=== PATIENT | female | born 1985 | race African-American/Black ===

== ENCOUNTER 2018-04-30 09:26 | Inpatient (IN) ==
[2018-04-30] MEDS ORDERED: FAMOTIDINE 20 MG/2 ML VIAL IV ONE (12:46)
[2018-04-30] MEDS ORDERED: ceFAZolin 2,000 MG in PREMIX 1 EACH IV ONE (12:46)
[2018-04-30] MEDS ORDERED: CITRIC ACID/SODIUM CITRATE 30 ML UDCUP PO ONE (12:46)
[2018-04-30] MEDS ORDERED: OXYTOCIN/LR 30 UNIT/1,000 ML BAG IV ONE (12:48)
[2018-04-30] MEDS ORDERED: OXYTOCIN 10 UNIT/ML VIAL IM ONE (12:48)
[2018-04-30] MEDS ORDERED: LACTATED RINGERS 1,000 ML IV SCH ×2 (13:00→15:00)
[2018-04-30 13:26] LABS: Basophils % 0.2 % (0.0-0.8); Eosinophils # 0.1 10*3/uL (0.0-0.87); Eosinophils % 0.7 % (0.00-10.9); Hematocrit 33.7 VOL% (35.7-47.0); Hemoglobin 11.1 GM/DL (12.0-16.0); Immature Granulocytes % 0.6 %; Immature Granulocytes Absolute 0.06 #; Lymphocytes # 2.5 10*3/uL (1.4-4.0); Lymphocytes % 22.9 % (21.3-54.2); Mean Corpuscular HGB Conc 32.9 GM/DL (32-36); Mean Corpuscular Hemoglobin 30 PG (27-34); Mean Corpuscular Volume 89.6 FL (87-102); Mean Platelet Volume 10.8 FL (9.6-12.0); Monocytes # 0.7 10*3/uL (0.11-0.8); Neutrophils # 7.6 10*3/uL (1.4-7.4); Neutrophils % 69.6 % (38.7-73.9); Platelet Count 282 T/CUMM (130-400); Red Blood Count 3.76 MC/CUMM (3.8-5.5); Red Cell Distribution Width 13.3 % (9.3-17.3); White Blood Count 10.8 T/CUMM (4-12)
[2018-04-30 13:45] LABS: Albumin 2.9 G/DL (3.4-5.0); Bilirubin,Total 0.4 MG/DL (0.2-1.0); Calcium 8.7 MG/DL (8.5-10.1); Osmolality,Calculated 272.5 MOS/KG (273-304); Potassium 3.7 MMOL/L (3.5-5.1); Total Protein 6.9 G/DL (6.4-8.3)
[2018-04-30] MEDS ORDERED: RHO(D) IMMUNE GLOBULIN 300 MCG SYRINGE IM ONE (14:49)
[2018-04-30] MEDS ORDERED: SIMETHICONE CHEW 80 MG TABLET PO PRN (14:49)
[2018-04-30] MEDS ORDERED: ONDANSETRON 4 MG/2 ML VIAL IV PRN (14:49)
[2018-04-30] MEDS ORDERED: ACETAMINOPHEN 325 MG TABLET PO PRN (14:49)
[2018-04-30] MEDS ORDERED: OXYTOCIN/LR 20 UNIT/1,000 ML BAG IV ONE (14:49)
[2018-04-30] MEDS ORDERED: PHENYLEPHRINE 1 MG/10 ML SYRINGE IV ONE (15:03)
[2018-04-30] MEDS ORDERED: fentaNYL 100 MCG/2 ML VIAL ONE (15:04)
[2018-04-30] MEDS ORDERED: MIDAZOLAM 2 MG/2 ML VIAL ONE (15:04)
[2018-04-30] MEDS ORDERED: BUPIVACAINE SPINAL 0.75% 2 ML AMP SPINAL ONE (15:05)
[2018-04-30] MEDS ORDERED: MORPHINE 10 MG/10 ML VIAL ONE (15:05)
[2018-04-30 15:09] LABS: Cord Arterial Blood HCO3 22.4 MMOL/L
[2018-04-30 15:12] LABS: Cord Venous Blood HCO3 19.1 MMOL/L; Cord Venous Blood PO2 39.6 MMHG
[2018-04-30 15:14] LABS: Apearance,Urine CLEAR (Clear); Bacteria,Urine Occasional /HPF (Few); Bilirubin,Urine Negative (Negative); Blood, Urine Negative (Negative); Glucose,Urine (UA) Negative (Negative); Ketones,Urine 20 mg/dL (Negative); Mucus,Urine Occasional /LPF (Occasional); Nitrite,Urine Negative (Negative); Protein,Urine Negative; Squamous Epithelial Cell,Urine Occasional /HPF (0-10); Urine Color Straw (Yellow); Urine Specific Gravity 1.006 (1.001-1.035); Urine Urobilinogen < 2.0 EU/DL (0.2-1.0)
[2018-04-30] MEDS ORDERED: HYDROmorphone 2 MG/1 ML VIAL IV ONE (17:14)
[2018-04-30 22:14] LABS: Basophils % 0.2 % (0.0-0.8); Eosinophils # 0.1 10*3/uL (0.0-0.87); Eosinophils % 0.6 % (0.00-10.9); Hematocrit 28.9 VOL% (35.7-47.0); Hemoglobin 9.6 GM/DL (12.0-16.0); Immature Granulocytes % 0.4 %; Immature Granulocytes Absolute 0.04 #; Lymphocytes # 2.5 10*3/uL (1.4-4.0); Lymphocytes % 24.3 % (21.3-54.2); Mean Corpuscular HGB Conc 33.2 GM/DL (32-36); Mean Corpuscular Hemoglobin 30 PG (27-34); Mean Corpuscular Volume 89.5 FL (87-102); Mean Platelet Volume 10.8 FL (9.6-12.0); Monocytes # 0.8 10*3/uL (0.11-0.8); Monocytes % 8.1 % (1.7-12.7); Neutrophils # 6.7 10*3/uL (1.4-7.4); Neutrophils % 66.4 % (38.7-73.9); Platelet Count 239 T/CUMM (130-400); Red Blood Count 3.23 MC/CUMM (3.8-5.5); Red Cell Distribution Width 13.2 % (9.3-17.3); White Blood Count 10.1 T/CUMM (4-12)
[2018-04-30] MEDS: ceFAZolin 1,000 MG in SYRINGE 1 EACH IV SCH (22:30)
[2018-04-30] MEDS: DOCUSATE SODIUM 100 MG CAPSULE PO SCH (23:14)
[2018-04-30] MEDS: IBUPROFEN 800 MG TABLET PO PRN (23:57)
[2018-05-01 04:41] LABS: Basophils % 0.2 % (0.0-0.8); Eosinophils # 0.2 10*3/uL (0.0-0.87); Eosinophils % 1.8 % (0.00-10.9); Hemoglobin 8.6 GM/DL (12.0-16.0); Immature Granulocytes % 0.5 %; Immature Granulocytes Absolute 0.04 #; Lymphocytes # 2.1 10*3/uL (1.4-4.0); Lymphocytes % 23.9 % (21.3-54.2); Mean Corpuscular HGB Conc 33.1 GM/DL (32-36); Mean Corpuscular Hemoglobin 30 PG (27-34); Mean Corpuscular Volume 89.7 FL (87-102); Mean Platelet Volume 11.2 FL (9.6-12.0); Monocytes # 0.7 10*3/uL (0.11-0.8); Monocytes % 8.3 % (1.7-12.7); Neutrophils # 5.6 10*3/uL (1.4-7.4); Neutrophils % 65.3 % (38.7-73.9); Platelet Count 210 T/CUMM (130-400); Red Cell Distribution Width 13.2 % (9.3-17.3); White Blood Count 8.7 T/CUMM (4-12)
[2018-05-01] MEDS: ceFAZolin 1,000 MG in SYRINGE 1 EACH IV SCH (06:13)
[2018-05-01] MEDS ORDERED: diphenhydrAMINE CAP 50 MG CAPSULE PO PRN (09:35)
[2018-05-01] MEDS: DOCUSATE SODIUM 100 MG CAPSULE PO SCH ×2 (09:51→20:39)
[2018-05-01] MEDS: MAGNESIUM HYDROXIDE SUSP 30 ML UDCUP PO PRN ×2 (09:51→20:39)
[2018-05-01] MEDS: MULTIVITAMIN (PRENATAL) TABLET PO SCH (09:51)
[2018-05-01] MEDS: diphenhydrAMINE CAP 25 MG CAPSULE PO PRN ×3 (10:00→23:11)
[2018-05-01] MEDS: IBUPROFEN 800 MG TABLET PO PRN ×2 (10:34→20:39)
[2018-05-02 07:29] VITALS: BP 110/72
[2018-05-02] MEDS: DOCUSATE SODIUM 100 MG CAPSULE PO SCH (08:49)
[2018-05-02] MEDS: MULTIVITAMIN (PRENATAL) TABLET PO SCH (08:49)
== END 2018-05-02 12:23 | disposition home or self-care (01) | DRG 540 ==
LOC: N.LDOUT 09:26 → N.LD 12:46 → N.OB 18:00
PROVIDERS: ADMIT Obstetrics & Gynecology; ATTEND Obstetrics & Gynecology
PROC: LDCSECT (ICD-10-PCS; 2018-04-30 14:00)

== ENCOUNTER 2019-10-15 13:46 | Inpatient (IN) ==
[2019-10-15 15:12] LABS: Basophils # 0.1 10*3/uL (0.0-0.2); Basophils % 0.3 % (0.0-0.8); Eosinophils # 0.1 10*3/uL (0.0-0.87); Eosinophils % 0.3 % (0.00-10.9); Hematocrit 37.2 VOL% (35.7-47.0); Hemoglobin 11.6 GM/DL (12.0-16.0); Immature Granulocytes % 0.9 %; Immature Granulocytes Absolute 0.16 #; Lymphocytes # 2.1 10*3/uL (1.4-4.0); Lymphocytes % 11.6 % (21.3-54.2); Mean Corpuscular HGB Conc 31.2 GM/DL (32-36); Mean Corpuscular Volume 86.1 FL (87-102); Monocytes % 10.8 % (1.7-12.7); Neutrophils % 76.1 % (38.7-73.9); Platelet Count 260 T/CUMM (130-400); Red Blood Count 4.32 MC/CUMM (3.8-5.5); Red Cell Distribution Width 15.3 % (9.3-17.3); White Blood Count 17.7 T/CUMM (4-12)
[2019-10-15 15:19] LABS: Apearance,Urine CLOUDY (Clear); Bilirubin,Urine Negative (Negative); Blood, Urine Moderate mg/dL (Negative); Glucose,Urine (UA) Negative (Negative); Ketones,Urine Negative (Negative); Mucus,Urine Occasional /LPF (Occasional); Nitrite,Urine Positive (Negative); Protein,Urine 100 MG/DL; RBC,Urine 17 /HPF (0-4); Squamous Epithelial Cell,Urine Occasional /HPF (0-10); Urine Color Yellow (Yellow); Urine Specific Gravity 1.015 (1.001-1.035); Urine Urobilinogen < 2.0 EU/DL (0.2-1.0); WBC,Urine 1034 /HPF (0-6)
[2019-10-15] MEDS ORDERED: SODIUM CHLORIDE 0.9% 1,000 ML IV STA (15:27)
[2019-10-15] MEDS ORDERED: cefTRIAXone 1,000 MG in SODIUM CHLORIDE 0.9% 100 ML IV STA (15:27)
[2019-10-15] MEDS ORDERED: ONDANSETRON 4 MG/2 ML VIAL IV STA (15:27)
[2019-10-15 15:34] LABS: Albumin 3.3 G/DL (3.4-5.0); Bilirubin,Total 0.7 MG/DL (0.2-1.0)
[2019-10-15] MEDS ORDERED: MORPHINE 4 MG/1 ML VIAL ONE (15:45)
[2019-10-15] MEDS ORDERED: MORPHINE 4 MG/1 ML VIAL IV STA (15:49)
[2019-10-15] MEDS ORDERED: DEXTROSE 10% 250 ML BAG IV PRN (18:15)
[2019-10-15] MEDS ORDERED: MORPHINE 4 MG/1 ML VIAL IV PRN (18:15)
[2019-10-15] MEDS ORDERED: GLUCAGON 1 MG VIAL IM PRN (18:15)
[2019-10-15] MEDS ORDERED: NICOTINE 21 MG/24 HR PATCH TRANSDERM PRN (18:15)
[2019-10-15] MEDS ORDERED: ONDANSETRON 4 MG/2 ML VIAL IV PRN (18:15)
[2019-10-15] MEDS ORDERED: DOCUSATE SODIUM 100 MG CAPSULE PO PRN (18:15)
[2019-10-15] MEDS ORDERED: ALBUTEROL/IPRATROPIUM 3 ML NEB RESP TX PRN (18:15)
[2019-10-15] MEDS ORDERED: SODIUM CHLORIDE 0.9% 1,000 ML IV SCH (18:30)
[2019-10-15] MEDS: SODIUM CHLORIDE 0.9% 1,000 ML IV SCH (22:08)
[2019-10-15] MEDS: ENOXAPARIN 40 MG/0.4 ML SYRINGE SUBCUT SCH (22:08)
[2019-10-15] MEDS: LEVOFLOXACIN INJ 750 MG in PREMIX 1 EACH IV SCH (23:16)
[2019-10-16 05:45] LABS: Basophils # 0.1 10*3/uL (0.0-0.2); Basophils % 0.3 % (0.0-0.8); Eosinophils # 0.1 10*3/uL (0.0-0.87); Eosinophils % 0.5 % (0.00-10.9); Hematocrit 32.4 VOL% (35.7-47.0); Hemoglobin 10.1 GM/DL (12.0-16.0); Immature Granulocytes % 0.8 %; Immature Granulocytes Absolute 0.14 #; Lymphocytes # 2.3 10*3/uL (1.4-4.0); Lymphocytes % 13.1 % (21.3-54.2); Mean Corpuscular HGB Conc 31.2 GM/DL (32-36); Mean Corpuscular Volume 87.1 FL (87-102); Mean Platelet Volume 11.7 FL (9.6-12.0); Monocytes % 12.6 % (1.7-12.7); Neutrophils % 72.7 % (38.7-73.9); Platelet Count 228 T/CUMM (130-400); Red Blood Count 3.72 MC/CUMM (3.8-5.5); Red Cell Distribution Width 15.4 % (9.3-17.3); White Blood Count 17.2 T/CUMM (4-12)
[2019-10-16 06:17] LABS: Albumin 2.6 G/DL (3.4-5.0); Bilirubin,Total 0.8 MG/DL (0.2-1.0); Calcium 8.3 MG/DL (8.5-10.1); Osmolality,Calculated 267.1 MOS/KG (273-304); Risk Ratio 3.48; Thyroid Stimulating Hormone 0.323 uIU/ml (0.358-3.74); Total Protein 6.8 G/DL (6.4-8.3); VLDL CHOLESTEROL 26.2 MG/DL
[2019-10-16] MEDS: ACETAMINOPHEN 325 MG TABLET PO PRN ×3 (08:40→20:23)
[2019-10-16] MEDS: PANTOPRAZOLE 40 MG TABLET PO SCH (08:40)
[2019-10-16] MEDS: SODIUM CHLORIDE 0.9% 1,000 ML IV SCH ×3 (10:08→18:42)
[2019-10-16] MEDS: LEVOFLOXACIN INJ 750 MG in PREMIX 1 EACH IV SCH (18:14)
[2019-10-16] MEDS: ENOXAPARIN 40 MG/0.4 ML SYRINGE SUBCUT SCH (21:10)
[2019-10-17] MEDS: SODIUM CHLORIDE 0.9% 1,000 ML IV SCH ×2 (01:20→14:46)
[2019-10-17] MEDS: ACETAMINOPHEN 325 MG TABLET PO PRN (03:30)
[2019-10-17 04:12] LABS: Basophils # 0.1 10*3/uL (0.0-0.2); Basophils % 0.4 % (0.0-0.8); Eosinophils # 0.2 10*3/uL (0.0-0.87); Eosinophils % 1.9 % (0.00-10.9); Hematocrit 32.9 VOL% (35.7-47.0); Immature Granulocytes % 0.6 %; Immature Granulocytes Absolute 0.07 #; Lymphocytes # 1.7 10*3/uL (1.4-4.0); Mean Corpuscular HGB Conc 30.4 GM/DL (32-36); Mean Corpuscular Volume 87.3 FL (87-102); Mean Platelet Volume 11.2 FL (9.6-12.0); Monocytes % 10.5 % (1.7-12.7); Neutrophils % 71.6 % (38.7-73.9); Platelet Count 220 T/CUMM (130-400); Red Blood Count 3.77 MC/CUMM (3.8-5.5); White Blood Count 11.5 T/CUMM (4-12)
[2019-10-17 05:00] LABS: Alanine Aminotransferase 23 U/L (13-56); Albumin 2.6 G/DL (3.4-5.0); Alkaline Phosphatase 84 U/L (45-117); Aspartate Amino Transferase 19 U/L (0-37); Bilirubin,Total < 0.39 MG/DL (0.2-1.0); Blood Urea Nitrogen 8 MG/DL (7-18); Calcium 8.3 MG/DL (8.5-10.1); Estimated Glom Filtration Rate 112 ML/MIN; Glucose 102 MG/DL (74-106); Total Protein 7.1 G/DL (6.4-8.3)
[2019-10-17] MEDS: PANTOPRAZOLE 40 MG TABLET PO SCH (08:58)
[2019-10-17 10:48] LABS: Free T4 (Free Thyroxine) 1.09 NG/DL (0.76-1.46)
[2019-10-17 13:40] VITALS: BP 96/80
== END 2019-10-17 14:32 | disposition left against medical advice (07) | DRG 463 ==
LOC: N.ED 13:46 → N.EDINP 19:33 → N.2E 19:49
PROVIDERS: ADMIT Family Medicine; ATTEND Family Medicine

== ENCOUNTER 2020-07-14 02:58 | Observation (INO) ==
[2020-07-14] MEDS ORDERED: ALUM/MAG/SIMETH/LIDO VISC 1:1 30 ML BOTTLE PO STA (03:16)
[2020-07-14] MEDS ORDERED: ASPIRIN 325 MG TABLET PO STA (03:16)
[2020-07-14] MEDS ORDERED: ONDANSETRON 4 MG/2 ML VIAL IV STA (03:29)
[2020-07-14] MEDS ORDERED: ONDANSETRON 4 MG/2 ML VIAL ONE (03:30)
[2020-07-14] MEDS ORDERED: SODIUM CHLORIDE 0.9% 500 ML IV STA (03:30)
[2020-07-14 03:36] LABS: Basophils % 0.2 % (0.0-0.8); Eosinophils # 0.4 10*3/uL (0.0-0.87); Eosinophils % 3.4 % (0.00-10.9); Hematocrit 28.6 VOL% (35.7-47.0); Hemoglobin 9.7 GM/DL (12.0-16.0); Immature Granulocytes % 1.1 %; Immature Granulocytes Absolute 0.13 #; Lymphocytes # 2.7 10*3/uL (1.4-4.0); Lymphocytes % 22.2 % (21.3-54.2); Mean Corpuscular HGB Conc 33.9 GM/DL (32-36); Mean Corpuscular Volume 92.3 FL (87-102); Mean Platelet Volume 10.4 FL (9.6-12.0); Monocytes % 7.2 % (1.7-12.7); Neutrophils % 65.9 % (38.7-73.9); Platelet Count 286 T/CUMM (130-400); Red Cell Distribution Width 13.2 % (9.3-17.3)
[2020-07-14 04:18] LABS: Alanine Aminotransferase 25 U/L (13-56); Albumin 2.9 G/DL (3.4-5.0); Alkaline Phosphatase 86 U/L (45-117); Aspartate Amino Transferase 22 U/L (0-37); Bilirubin,Total < 0.39 MG/DL (0.2-1.0); Blood Urea Nitrogen 5 MG/DL (7-18); Calcium 8.4 MG/DL (8.5-10.1); Estimated Glom Filtration Rate 150 ML/MIN; Glucose 108 MG/DL (74-106); Osmolality,Calculated 272.7 MOS/KG (273-304); Total Protein 6.4 G/DL (6.4-8.3)
[2020-07-14 04:29] LABS: Hypochromasia 1+; Microcytosis 1+; Platelet Estimate Adequate
[2020-07-14] MEDS ORDERED: SODIUM CHLORIDE 0.9% 1,000 ML IV SCH (05:46)
[2020-07-14] MEDS ORDERED: MAGNESIUM HYDROXIDE SUSP 30 ML UDCUP PO PRN (05:46)
[2020-07-14] MEDS ORDERED: ONDANSETRON 4 MG/2 ML VIAL IV PRN (05:46)
[2020-07-14] MEDS ORDERED: ACETAMINOPHEN 325 MG TABLET PO PRN (05:46)
[2020-07-14 06:19] LABS: Bilirubin,Urine Negative (Negative); Blood, Urine Negative (Negative); Glucose,Urine (UA) Negative (Negative); Ketones,Urine 20 mg/dL (Negative); Nitrite,Urine Negative (Negative); Protein,Urine Negative; RBC,Urine 5 /HPF (0-4); Squamous Epithelial Cell,Urine Occasional /HPF (0-10); Urine Appearance CLEAR (Clear); Urine Color Yellow (Yellow); Urine Specific Gravity > 1.060 (1.001-1.035); Urine Urobilinogen < 2.0 EU/DL (0.2-1.0); WBC,Urine 3 /HPF (0-6)
[2020-07-14] MEDS ORDERED: LACTATED RINGERS 1,000 ML IV SCH (07:00)
[2020-07-14 07:29] LABS: Barbiturates Screen,Urine Negative (Negative); Benzodiazepines Screen,Urine Negative (Negative); Cannabinoid Screen,Urine Negative (Negative); Opiate Screen,Urine Negative (Negative); Phencyclidine Screen,Urine Negative (Negative)
[2020-07-14] MEDS ORDERED: PANTOPRAZOLE 40 MG VIAL IV SCH (08:00)
[2020-07-14 11:13] VITALS: BP 99/62
== END 2020-07-14 14:35 | disposition home or self-care (01) ==
LOC: N.EDINP 02:58 → N.ED 02:58 → N.LD 05:33 → N.OB 08:50
PROVIDERS: ADMIT Obstetrics & Gynecology; ATTEND Obstetrics & Gynecology

== ENCOUNTER 2020-10-09 03:28 | Inpatient (IN) ==
[2020-10-09 04:01] LABS: Bilirubin,Urine Negative (Negative); Blood, Urine Negative (Negative); Glucose,Urine (UA) Negative (Negative); Ketones,Urine 5 mg/dL (Negative); Mucus,Urine Occasional /LPF (Occasional); Nitrite,Urine Negative (Negative); Protein,Urine Negative; RBC,Urine <1 /HPF (0-4); Squamous Epithelial Cell,Urine Occasional /HPF (0-10); Urine Appearance CLEAR (Clear); Urine Color Yellow (Yellow); Urine Specific Gravity 1.008 (1.001-1.035); Urine Urobilinogen < 2.0 EU/DL (0.2-1.0); WBC,Urine <1 /HPF (0-6)
[2020-10-09 04:40] LABS: Barbiturates Screen,Urine Negative (Negative); Benzodiazepines Screen,Urine Negative (Negative); Cannabinoid Screen,Urine Negative (Negative); Opiate Screen,Urine Negative (Negative); Phencyclidine Screen,Urine Negative (Negative)
[2020-10-09] MEDS ORDERED: TERBUTALINE 1 MG/1 ML VIAL SUBCUT PRN (04:45)
[2020-10-09] MEDS ORDERED: LACTATED RINGERS 1,000 ML IV ONE (04:46)
[2020-10-09] MEDS ORDERED: ONDANSETRON 4 MG/2 ML VIAL IV ONE (04:48)
[2020-10-09] MEDS ORDERED: MEPERIDINE 25 MG/1 ML VIAL IV ONE (04:48)
[2020-10-09] MEDS ORDERED: MEPERIDINE 50 MG/1 ML VIAL ONE (04:51)
[2020-10-09] MEDS ORDERED: MEPERIDINE 50 MG/1 ML VIAL IV ONE (05:14)
[2020-10-09] MEDS ORDERED: FAMOTIDINE 20 MG/2 ML VIAL IV PRN (05:15)
[2020-10-09] MEDS ORDERED: CITRIC ACID/SODIUM CITRATE 30 ML UDCUP PO PRN (05:15)
[2020-10-09] MEDS ORDERED: ceFAZolin 2,000 MG in PREMIX 1 EACH IV ONE (05:15)
[2020-10-09] MEDS ORDERED: OXYTOCIN 10 UNIT/ML VIAL IM PRN (05:19)
[2020-10-09 05:27] LABS: Basophils % 0.3 % (0.0-0.8); Eosinophils # 0.4 10*3/uL (0.0-0.87); Eosinophils % 3.2 % (0.00-10.9); Hematocrit 33.6 VOL% (35.7-47.0); Hemoglobin 11.3 GM/DL (12.0-16.0); Immature Granulocytes % 0.7 %; Immature Granulocytes Absolute 0.08 #; Lymphocytes # 2.9 10*3/uL (1.4-4.0); Lymphocytes % 24.7 % (21.3-54.2); Mean Corpuscular HGB Conc 33.6 GM/DL (32-36); Mean Corpuscular Volume 88.9 FL (87-102); Mean Platelet Volume 10.7 FL (9.6-12.0); Monocytes % 8.8 % (1.7-12.7); Neutrophils % 62.3 % (38.7-73.9); Platelet Count 334 T/CUMM (130-400); Red Blood Count 3.78 MC/CUMM (3.8-5.5); Red Cell Distribution Width 13.2 % (9.3-17.3); White Blood Count 11.7 T/CUMM (4-12)
[2020-10-09] MEDS ORDERED: LACTATED RINGERS 1,000 ML IV SCH ×2 (05:30→08:30)
[2020-10-09 05:46] LABS: Albumin 2.5 G/DL (3.4-5.0); Bilirubin,Total 0.6 MG/DL (0.2-1.0); Calcium 8.9 MG/DL (8.5-10.1); Osmolality,Calculated 269.8 MOS/KG (273-304); Potassium 3.9 MMOL/L (3.5-5.1); Total Protein 6.9 G/DL (6.4-8.2)
[2020-10-09] MEDS ORDERED: OXYTOCIN/LR 30 UNIT/1,000 ML BAG IV ONE (06:41)
[2020-10-09] MEDS ORDERED: PHENYLEPHRINE 1 MG/10 ML SYRINGE IV ONE (06:52)
[2020-10-09] MEDS ORDERED: miSOPROStoL 200 MCG TABLET ONE (06:52)
[2020-10-09] MEDS ORDERED: TRANEXAMIC ACID 1,000 MG/10 ML VIAL ONE (06:52)
[2020-10-09] MEDS ORDERED: METHYLERGONOVINE 0.2 MG/1 ML AMP ONE (06:52)
[2020-10-09] MEDS ORDERED: BUPIVACAINE SPINAL 0.75% 2 ML AMP SPINAL ONE (06:52)
[2020-10-09] MEDS ORDERED: ONDANSETRON 4 MG/2 ML VIAL ONE (06:53)
[2020-10-09] MEDS ORDERED: CARBOPROST TROMETHAMINE 250 MCG/ML AMP IM ONE (06:53)
[2020-10-09] MEDS ORDERED: SODIUM CHLORIDE 0.9% 100 ML IV ONE (06:54)
[2020-10-09] MEDS ORDERED: MORPHINE 10 MG/10 ML VIAL ONE (07:11)
[2020-10-09 07:51] LABS: Cord Venous Blood HCO3 21.9 MMOL/L; Cord Venous Blood PCO2 53.1 MMHG
[2020-10-09] MEDS ORDERED: MIDAZOLAM 2 MG/2 ML VIAL ONE (07:52)
[2020-10-09 07:55] LABS: Cord Venous Blood PO2 16.6
[2020-10-09] MEDS ORDERED: ACETAMINOPHEN 325 MG TABLET PO PRN (08:24)
[2020-10-09] MEDS ORDERED: OXYTOCIN/LR 20 UNIT/1,000 ML BAG IV ONE (08:24)
[2020-10-09] MEDS ORDERED: ONDANSETRON 4 MG/2 ML VIAL IV PRN (08:24)
[2020-10-09] MEDS ORDERED: RHO(D) IMMUNE GLOBULIN 300 MCG SYRINGE IM ONE (08:24)
[2020-10-09] MEDS ORDERED: SIMETHICONE CHEW 80 MG TABLET PO PRN (08:24)
[2020-10-09] MEDS ORDERED: ceFAZolin 1,000 MG in SYRINGE 1 EACH IV SCH (08:30)
[2020-10-09] MEDS ORDERED: ACETAMINOPHEN 500 MG TABLET PO PRN (09:05)
[2020-10-09] MEDS: KETOROLAC 30 MG/1 ML VIAL IV SCH ×3 (09:25→21:34)
[2020-10-09] MEDS ORDERED: diphenhydrAMINE 50 MG/1 ML VIAL IV PRN ×3 (09:44→20:31)
[2020-10-09] MEDS ORDERED: hydrOXYzine HCL 25 MG/1 ML VIAL IM PRN (09:44)
[2020-10-09] MEDS: ceFAZolin 1,000 MG in SYRINGE 1 EACH IV SCH (15:08)
[2020-10-09 16:09] LABS: Basophils % 0.3 % (0.0-0.8); Eosinophils # 0.2 10*3/uL (0.0-0.87); Eosinophils % 1.7 % (0.00-10.9); Hematocrit 30.3 VOL% (35.7-47.0); Hemoglobin 9.5 GM/DL (12.0-16.0); Immature Granulocytes % 0.7 %; Immature Granulocytes Absolute 0.06 #; Lymphocytes % 22.2 % (21.3-54.2); Mean Corpuscular HGB Conc 31.4 GM/DL (32-36); Mean Corpuscular Volume 92.7 FL (87-102); Mean Platelet Volume 10.8 FL (9.6-12.0); Monocytes % 8.7 % (1.7-12.7); Neutrophils % 66.4 % (38.7-73.9); Platelet Count 256 T/CUMM (130-400); Red Blood Count 3.27 MC/CUMM (3.8-5.5); Red Cell Distribution Width 13.2 % (9.3-17.3); White Blood Count 9.2 T/CUMM (4-12)
[2020-10-10] MEDS: ceFAZolin 1,000 MG in SYRINGE 1 EACH IV SCH (03:15)
[2020-10-10 05:28] LABS: Basophils % 0.2 % (0.0-0.8); Eosinophils # 0.2 10*3/uL (0.0-0.87); Eosinophils % 2.3 % (0.00-10.9); Hemoglobin 8.9 GM/DL (12.0-16.0); Immature Granulocytes % 0.5 %; Immature Granulocytes Absolute 0.04 #; Lymphocytes # 2.2 10*3/uL (1.4-4.0); Lymphocytes % 25.5 % (21.3-54.2); Mean Corpuscular Volume 88.5 FL (87-102); Mean Platelet Volume 11.6 FL (9.6-12.0); Monocytes % 8.8 % (1.7-12.7); Neutrophils % 62.7 % (38.7-73.9); Platelet Count 229 T/CUMM (130-400); Red Blood Count 3.05 MC/CUMM (3.8-5.5); Red Cell Distribution Width 13.2 % (9.3-17.3); White Blood Count 8.6 T/CUMM (4-12)
[2020-10-10] MEDS: FERROUS SULFATE 325 MG TABLET PO SCH ×2 (07:37→16:30)
[2020-10-10] MEDS: METOCLOPRAMIDE 10 MG TABLET PO SCH ×2 (07:37→15:45)
[2020-10-10] MEDS ORDERED: FERROUS SULFATE 325 MG TABLET PO SCH (09:00)
[2020-10-10] MEDS: DOCUSATE SODIUM 100 MG CAPSULE PO SCH ×2 (09:40→20:37)
[2020-10-10] MEDS: MULTIVITAMIN (PRENATAL) TABLET PO SCH (09:40)
[2020-10-10] MEDS: IBUPROFEN 800 MG TABLET PO PRN (15:18)
[2020-10-10] MEDS: KETOROLAC 30 MG/1 ML VIAL IV SCH (20:18)
[2020-10-10] MEDS: MAGNESIUM HYDROXIDE SUSP 30 ML UDCUP PO PRN (20:37)
[2020-10-11] MEDS: METOCLOPRAMIDE 10 MG TABLET PO SCH ×2 (00:36→18:54)
[2020-10-11] MEDS: IBUPROFEN 800 MG TABLET PO PRN (02:35)
[2020-10-11] MEDS: MULTIVITAMIN (PRENATAL) TABLET PO SCH (08:54)
[2020-10-11] MEDS: FERROUS SULFATE 325 MG TABLET PO SCH (08:54)
[2020-10-11] MEDS: DOCUSATE SODIUM 100 MG CAPSULE PO SCH (08:55)
[2020-10-11 11:14] VITALS: BP 120/86
[2020-10-11] MEDS: MAGNESIUM HYDROXIDE SUSP 30 ML UDCUP PO PRN (14:40)
== END 2020-10-11 16:50 | disposition home or self-care (01) | DRG 540 ==
LOC: N.LDOUT 03:28 → N.LD 03:30 → N.OB 12:01
PROVIDERS: ADMIT Obstetrics & Gynecology; ATTEND Obstetrics & Gynecology